=== PATIENT | male | born 1970 | race Hispanic/Latino ===

== ENCOUNTER 2023-11-15 08:01 | Day surgery (SDC) | payer OTHER ==
[2023-11-13 10:54] LABS: BASOPHILS # (AUTO) 0.07 K/uL (0.00-0.20); BASOPHILS % (AUTO) 0.7 % (0.0-5.0); EOSINOPHILS # (AUTO) 0.09 K/uL (0.00-0.70); EOSINOPHILS % (AUTO) 0.9 % (0.0-8.0); HEMATOCRIT 48.5 % (42-54); IMMATURE GRANULOCYTE ABSOLUTE 0.05 K/uL (0-1); LYMPHOCYTES # (AUTO) 1.8 K/uL (1.0-4.8); LYMPHOCYTES % (AUTO) 18.7 % (21.0-51.0); MEAN CORPUSCULAR HEMOGLOBIN 30.8 pg (27.0-33.0); MEAN CORPUSCULAR VOLUME 93.4 fL (79-99); MONOCYTES # (AUTO) 0.8 K/uL (0.1-1.0); MONOCYTES % (AUTO) 8.4 % (3.0-13.0); NEUTROPHILS # (AUTO) 6.8 K/uL (1.8-7.7); NEUTROPHILS % (AUTO) 70.8 % (40.0-77.0); PLATELET COUNT (AUTO) 178 K/uL (130-400); RED BLOOD CELL COUNT(AUTO) 5.19 MIL/uL (4.50-6.20); RED CELL DISTRIBUTION WIDTH 12.8 % (11.0-15.5); WHITE BLOOD COUNT (AUTO) 9.7 K/uL (4.8-10.8)
[2023-11-13 11:02] LABS: CREATININE 0.9 mg/dL (0.5-1.3); POTASSIUM 4.5 mmol/L (3.5-5.1)
[2023-11-13 11:04] LABS: INR 1.06 (0.85-1.15); PROTHROMBIN TIME 12.4 SEC (9.6-11.6)
[2023-11-13 11:06] LABS: PARTIAL THROMBOPLASTIN TIME 30.4 SEC (26.3-35.5)
[2023-11-13 11:17] VITALS: BP 159/89; PULSE 69; RESP 18
[2023-11-13 11:24] LABS: B-TYPE NATRIURETIC PEPTIDE 286 pg/mL (0-100)
[~2023-11-15] VITALS: Ht 172.7 cm; Wt 131.1 kg
[2023-11-15] VITALS (9 sets, daily range): BP systolic 104–162; BP diastolic 55–87; PULSE 66–78; RESP 15–18
[~2023-11-15 08:01] MED LIST: AEC81 PO; ATOR40TA71 PO; CLOP75TA32 PO; GARL10002 PO; HYDR-3421 PO; [UNRECOGNIZED DRUG - OTHER] PO
[2023-11-15 09:07] LABS: APPEARANCE,URINE CLEAR (CLEAR); BILIRUBIN,URINE NEGATIVE (NEGATIVE); COLOR,URINE YELLOW (YELLOW); GLUCOSE, URINE (UA) 50 mg/dL (NEGATIVE); KETONES,URINE NEGATIVE (NEGATIVE); LEUKOCYTE ESTERASE ,URINE NEGATIVE Leu/uL (NEGATIVE); NITRATE,URINE NEGATIVE (NEGATIVE); OCCULT BLOOD,URINE NEGATIVE (NEGATIVE); PROTEIN,URINE 30 mg/dL (NEGATIVE); UROBILINOGEN,URINE 0.2 mg/dL (0.2-1.0)
[2023-11-15 09:10] LABS: ADD UA MICROSCOPIC YES
[2023-11-15 09:18] LABS: BACTERIA,URINE RARE /HPF (None Seen); MUCUS,URINE RARE LPF (None Seen); RBC,URINE 0-1 /HPF (0-1); SQUAMOUS EPITHELIAL CELL,UR RARE /HPF (0-2); WBC,URINE 0-1 /HPF (0-1)
[2023-11-15] MEDS: SOLU-MEDROL 125MG VIAL IVP ONE (10:17)
[2023-11-15] MEDS: FAMOTIDINE 20MG VIAL IV ONE (10:17)
[2023-11-15] MEDS: DiphenhydrAMINE HCL 50 MG/ML VIAL IV ONE (10:18)
[2023-11-15] MEDS: 0.9%NACL 1000ML 1,000 ML IV ONE (10:18)
[2023-11-15] MEDS ORDERED: MEPERIDINE-PF 25 MG/ML SYG ONE ×2 (10:53→11:12)
[2023-11-15] MEDS ORDERED: IOHEXOL-350 75 ML VIAL IV ONE ×2 (10:53→10:55)
[2023-11-15] MEDS ORDERED: HEPARIN 10,000 UNIT/10ML (1,000 UNIT/ML) VIAL ONE (10:53)
[2023-11-15] MEDS ORDERED: LIDOCAINE HCL 400MG/20ML VIAL ONE (10:53)
[2023-11-15] MEDS ORDERED: MIDAZOLAM HCL 1 MG/ML 2ML VIAL ONE ×2 (10:53→11:12)
[2023-11-15] MEDS ORDERED: NITROGLYCERIN 50MG VIAL ONE (10:54)
[2023-11-15] MEDS ORDERED: NICARDIPINE 25MG INJ IV ONE (11:08)
[2023-11-15] MEDS ORDERED: IOHEXOL-350 50ML VIAL IV ONE (11:27)
[2023-11-15] MEDS ORDERED: FUROSEMIDE 20MG VIAL ONE (11:47)
[2023-11-15] MEDS ORDERED: DEXTROSE 50%-WATER 50 ML DISP.SYRIN IV PRN (12:00)
[2023-11-15] MEDS ORDERED: 0.9%NACL 10ML VIAL IVP SCH (12:00)
[2023-11-15] MEDS ORDERED: INSULIN HUMULIN R 100 UNIT/ML 3ML SQ SCH (16:30)
== END 2023-11-15 14:25 | disposition home or self-care (01) ==
LOC: DAH 08:01
PROVIDERS: ATTEND Internal Medicine Cardiovascular Disease
DX: I25.119 Atherosclerotic heart disease of native coronary artery with unspecified angina pectoris (principal); I25.5 Ischemic cardiomyopathy; I34.81 Nonrheumatic mitral (valve) annulus calcification; I11.0 Hypertensive heart disease with heart failure; I50.42 Chronic combined systolic (congestive) and diastolic (congestive) heart failure; E11.9 Type 2 diabetes mellitus without complications; E66.01 Morbid (severe) obesity due to excess calories; I25.2 Old myocardial infarction; Z79.82 Long term (current) use of aspirin; Z79.01 Long term (current) use of anticoagulants; Z79.899 Other long term (current) drug therapy; Z86.73 Personal history of transient ischemic attack (TIA), and cerebral infarction without residual deficits; Z82.49 Family history of ischemic heart disease and other diseases of the circulatory system; Z68.41 Body mass index [BMI] 40.0-44.9, adult
CPT/HCPCS: 80048; 83880; 85025; 85610; 85730; 36415; 71045; 93005; 93458; 82948 ×2; 81001; 93306; C1769; A4649; C1894; J1200; J3490 ×4; J7030; J2919; J1644 ×2; J2250 ×2; J1940; J2175 ×2; Q9967 ×2; A4215; A4222; A4221; A4663; A4216; A4606; A4223 ×3; 99156; 99157